=== PATIENT | female | born 1925 | race Caucasian/White ===

== ENCOUNTER 2016-09-08 23:30 | Emergency (ER) | payer MEDICARE, BC ==
[~2016-09-08 23:30] MED LIST: BENICAR PO; CORGARD PO; GLUCOTROL PO; ZOCOR PO
[2017-01-15] MEDS ORDERED: NADOLOL40 MG PO (11:56)
[2017-01-15] MEDS ORDERED: GLUCOTROL XL5 M1 PO (11:56)
[2017-01-15] MEDS ORDERED: ATIVAN PO (11:57)
[2017-01-15] MEDS ORDERED: LEXAPRO PO (11:57)
[2017-01-15] MEDS ORDERED: SIMVASTATIN40 MG PO (11:58)
== END 2016-09-09 | disposition left against medical advice (07) ==
LOC: SED 23:30
DX: Z53.21 Procedure and treatment not carried out due to patient leaving prior to being seen by health care provider (principal)

== ENCOUNTER → 2016-10-09 18:30 | Emergency (ER) | payer MEDICARE, BC ==
[~2016-10-09 18:30] MED LIST changes: +ATIVAN PO; +ATIVAN0.5 MG PO; +GLUCOTROL XL5 M1 PO; +HYDROXYUREA500 M1 PO; +LEXAPRO PO; +NADOLOL40 MG PO; +ONDANSETRON ODT4 MG PO; +SIMVASTATIN40 MG PO; +ZOFRAN ODT4 MG PO
== END | disposition left against medical advice (07) ==
LOC: CED 18:30
DX: Z53.21 Procedure and treatment not carried out due to patient leaving prior to being seen by health care provider (principal)
CPT/HCPCS: 82947; J0461

== ENCOUNTER → 2017-01-06 | Outpatient (CLI) | payer MEDICARE, BC ==
--- NOTE | ~2017-01-06 | CT55 ---
[facility] A Service of [facility] & [facility] RADIOLOGY TEXT RESULTS PATIENT: ARTIS WHITE [facility] [birth year] UNIT #: [id number] AGE: [address]: Erick Majano MD SEX: F ORDER DR: [id number] [facility] [address]. [place], [place] [address] [id number] O MR#: [id number] Acc #: [id number] NAME: ARTIS WHITE : 1925 SEX: F STUDY DATE/TIME: 01/06/2017 15:37 UNIT: [facility] ROOM: STUDY DESCRIPTION: CT Chest W Con Attending Physician: Erick Majano M.D. Referring Physician: Erick Majano M.D. Ordering Physician: Erick Majano M.D. Primary Care Physician: John Magallanes M.D. MEDICAL IMAGING REPORT This report is preliminary unless electronic signature is present EXAM CT chest with contrast, 01/06/2017, 1537 hours. CLINICAL HISTORY 89-year-old woman with a history of colon carcinoma, prior chemotherapy, complaining of the chest wall mass in the upper back on the right. Right-sided chest pain for 3 weeks. History of thrombocytopenia. COMPARISON CT chest, 09/08/2016. TECHNIQUE Dynamic helical CT images were obtained from the thoracic inlet through the adrenal glands with contrast. Isovue-370 70 mL IV. Total exam DLP 727 mGy-cm. This CT exam was performed with one or more of the following radiation dose reduction techniques: automatic exposure control, adjustment of mA and/or kV according to patient size, and iterative reconstruction. FINDINGS Images through the thoracic inlet demonstrate stable small left thyroid nodule with calcification, indeterminate but likely benign. Images through the chest demonstrate stable nodule well-circumscribed in the anterior mediastinal fat retrosternal area measuring 1.3 x 0.9 cm, previously 1.2 x 1.0 cm. There is no pathologic hilar adenopathy. Coronary calcifications are unchanged. Cardiac chambers and pericardium are normal. There is a very small hiatal hernia without change. Lung window images demonstrate clearing of the airspace densities from the right lower lobe. There is some linear density at the right base anteriorly and posteriorly, likely atelectasis or scar. There is no STS. [facility] A Service of [facility] RADIOLOGY TEXT RESULTS PATIENT: ARTIS WHITE LOCATION: [facility] : [birth year] UNIT #: [id number] AGE: [address]: Erick Majano MD SEX: F ORDER DR: change in a 3 mm subpleural nodule at the left lung base best seen on image 37, likely benign. There is no pleural effusion or pneumothorax. No rib fracture seen. The patient has 2 well-defined, new fluid collections in the musculature of the right back. In the medial superior right back medial to the scapula, there is a fluid collection fairly well defined measuring 6.7 x 2.4 x 5.1 cm. In the more inferolateral chest, there is a well-defined fluid collection measuring 8.7 x 3.2 x 10.4 cm. Both of these appear to be intramuscular and are new from 09/08/2016 and are favored to represent a subacute hematomas or chronic seromas. No definite associated rib fracture or rib lesion is seen. There is no enhancement associated with either area and post traumatic changes are favored. Limited views through the upper abdomen demonstrate stable mild splenomegaly. There is no liver or adrenal lesion. IMPRESSION 1. Interval clearing of the airspace changes and air bronchograms from the right lower lobe with some linear scarring at the right base, both anteriorly and posteriorly. There is no pleural effusion, pneumothorax, or rib lesion. 2. There are 2 new well-defined fluid collections in the musculature of the right chest posteriorly. In the more superior aspect of the chest, there is a collection measuring 6.7 x 2.4 x 5.1 cm. In the more inferolateral right chest wall, there is a collection measuring 8.7 x 3.2 x 10.4 cm. Both of these demonstrate no enhancement. Both are new from 09/08/2016 and are favored to represent subacute hematomas or seromas. Correlate with areas of palpable complaint. 3. There are no acute findings in the upper abdomen. STAT * RESULT Dictated by... Marietta Prescott M.D. THIS IS AN ELECTRONICALLY VERIFIED REPORT Marietta Prescott M.D. at 01/08/2017 2:33 PM PABLITO/uche TD: 01/08/2017 10:39 JOB #: [id number] MEDICAL IMAGING REPORT Page 1 of 1 COPY
[2017-01-06 17:40] LABS: POC - CREATININE 1.05 mg/dL (0.44-1.03)
== END | disposition home or self-care (01) ==
LOC: CCAT 14:58
PROVIDERS: Internal Medicine Hematology & Oncology
DX: R22.2 Localized swelling, mass and lump, trunk (principal); D47.3 Essential (hemorrhagic) thrombocythemia; J98.4 Other disorders of lung
CPT/HCPCS: 71260; 82565; Q9967

== ENCOUNTER → 2017-01-16 | Outpatient (CLI) | payer MEDICARE, BC ==
--- NOTE | ~2017-01-16 | XA51 ---
[facility] A Service of [facility] RADIOLOGY TEXT RESULTS PATIENT: ARTIS WHITE [facility] [birth year] UNIT #: [id number] AGE: [address]: Erick Majano MD SEX: F ORDER DR: [id number] [facility] [address] [place], [place] [address] [id number] O MR#: [id number] Acc #: [id number] NAME: ARTIS WHITE : 1925 SEX: F STUDY DATE/TIME: 01/16/2017 8:56 UNIT: [facility] ROOM: STUDY DESCRIPTION: XA BX Bone Marrow Attending Physician: Erick Majano M.D. Referring Physician: Erick Majano M.D. Ordering Physician: Erick Majano M.D. Primary Care Physician: John Magallanes M.D. MEDICAL IMAGING REPORT This report is preliminary unless electronic signature is present EXAM Bone marrow aspiration and biopsy HISTORY Thrombocytosis. TECHNIQUE The procedure was explained to the patient including risks, benefits and complications. Informed consent was obtained and a formal time-out procedure was utilized. Conscious sedation was employed with intravenous Versed and Fentanyl that was administered by nursing who was present and monitoring the patient during the examination. Total physician face time during conscious sedation 10-15 minutes. Sterile technique was utilized and the skin was anesthetized with 1% lidocaine. One overhead spot film was obtained with fluoroscopy time of 0.2 minutes and a dose of 10 mGy. Using sterile technique and following local anesthesia with 1% Xylocaine, a bone marrow trocar was placed into the right iliac bone under fluoroscopic guidance. Bone marrow aspiration was performed followed by core biopsy. The patient tolerated the procedure well. The aspirate was placed in appropriately colored and labeled test tubes. Final pathology results are pending. IMPRESSION Technically successful bone marrow aspiration and biopsy with conscious sedation. Dictated by... Preston Nettles M.D. THIS IS AN ELECTRONICALLY VERIFIED REPORT Preston Nettles M.D. at 01/16/2017 4:33 PM RLF/analia [facility] A Service of [facility] & [facility] RADIOLOGY TEXT RESULTS PATIENT: ARTIS WHTIE LOCATION: [facility] : [birth year] UNIT #: [id number] AGE: [address]: Erick Majano MD SEX: F ORDER DR: TD: 01/16/2017 13:29 JOB #: [id number] MEDICAL IMAGING REPORT Page 1 of 1 COPY
[2017-01-16 08:00] LABS: HEMATOCRIT 34.6 % (35.0-45.0); HEMOGLOBIN 10.5 gm/dL (12.0-16.0); MEAN CELL VOLUME 81.9 FL (83-96); MEAN CORPUSCULAR HGB CONC 30.5 g/dL (30-36); MEAN PLATELET VOLUME 8.4 FL (6.5-11.5); RED BLOOD COUNT 4.22 X10e (3.90-5.30); RED CELL DISTRIBUTION WIDTH 27.5 % (11.0-15.5); WHITE BLOOD COUNT 15.7 X10e3 (4.0-10.5)
[2017-01-16 08:12] LABS: INR 1.1; PARTIAL THROMBOPLASTIN TIME 24.4 SECONDS (23.5-31.3); PROTHROMBIN TIME (PATIENT) 12.1 SECONDS (10.0-11.7)
== END | disposition home or self-care (01) ==
LOC: CIVR 07:30
PROVIDERS: Internal Medicine Hematology & Oncology
PROC: 07DR3ZX Extraction of Iliac Bone Marrow, Percutaneous Approach, Diagnostic (ICD-10-PCS; principal; 2017-01-16)
PROC: 079T3ZX Drainage of Bone Marrow, Percutaneous Approach, Diagnostic (ICD-10-PCS; 2017-01-16)
DX: D47.3 Essential (hemorrhagic) thrombocythemia (principal); R22.2 Localized swelling, mass and lump, trunk; N28.89 Other specified disorders of kidney and ureter; E11.9 Type 2 diabetes mellitus without complications; I10 Essential (primary) hypertension; Z85.038 Personal history of other malignant neoplasm of large intestine; Z83.3 Family history of diabetes mellitus
CPT/HCPCS: 38221; G0364; 36415; 77002; 81270; 85027; 85610; 85730; 88184; 88185; 88237; 88261; 88271; 88275; 88280; 88285; 88305; 88311; 88313; 88323; 88341; 88342; J2250; J3010

== ENCOUNTER 2017-02-25 17:17 | Inpatient (IN) | payer MEDICARE, BC ==
[~2017-02-25] VITALS: Ht 160 cm; Wt 60.6 kg
--- NOTE | ~2017-02-25 | DS ---
Unit #: [id number] #: [id number] Patient: ARTIS WHITE [id number] [address] [place], [place] [address] [id number] I MR#: [id number] NAME: ARTIS WHITE ROOM: 328 Age: 89 Sex: F Admission Date: 02/25/2017 : 1925 Discharge Date: 02/27/2017 Attending Physician: Tessie Davis M.D. Primary Care Physician: John Magallanes M.D. DISCHARGE SUMMARY PRINCIPAL DIAGNOSES 1. Neutropenic fever, likely viral in origin. 2. Primary myelofibrosis with associated pancytopenia. 3. Pancytopenia. 4. Acute kidney injury, prerenal, now resolved. 5. Hypovolemic hyponatremia, resolved. 6. Diabetes mellitus type 2. 7. Depression with anxiety. 8. Hyperlipidemia. 9. Hypertension. CONSULTANTS Dr. Majano - Oncology. PROCEDURES Chest x-ray on February 25, 2017, without any acute findings. Cardiomegaly noted. CLINICAL HISTORY/HOSPITAL COURSE Ms. White is a very nice 89-year-old female who presents to the emergency department after the abrupt onset of nausea, vomiting, diarrhea and fever at home. Patient had recently been diagnosed with initially essential thrombocytosis and started on hydroxyurea. However, outpatient workup reveals significant pancytopenia and the combination of all these factors resulted in admission. In regards to patient's fever, she was started on empiric cefepime given she was neutropenic. However, chest x-ray, blood cultures, urine cultures, stool studies have all been negative and fever has spontaneously resolved. No plans for any further antibiotic therapy. The patient had undergone bone marrow biopsy on an outpatient basis and further studies on bone marrow biopsy reveals she has primary myelofibrosis and this is the most likely source of her pancytopenia. She has been transfused two units of packed red blood cells during hospitalization. Discharge white blood cell count is 1.9 and will be followed by Dr. Majano on an outpatient basis. Discharge platelet count 131,000. Patient is otherwise clinically stable and at her baseline. Diagnosis and prognosis have all been discussed with the patient and her family by Dr. Majano and they will follow up with Dr. Majano as an outpatient. DISCHARGE CONDITION Stable. Unit #: [id number] #: [id number] Patient: ARTIS WHITE DISCHARGE STATUS Discharge to home. DISCHARGE MEDICATIONS 1. Lexapro 10 mg daily. 2. Zofran 4 mg p.o. q.6 hours p.r.n. for nausea, vomiting. 3. Nadolol 40 mg daily. 4. Simvastatin 40 mg at bedtime. 5. Glucotrol XL 5 mg p.o. daily. DISCHARGE INSTRUCTIONS Patient instructed to follow a constant carb diet. She can increase her activity as tolerated. She is independent at baseline. FOLLOWUP Patient will follow up with Dr. Majano in two weeks. She can follow up with Dr. John Magallanes in two weeks as well. Dictated by... Tessie Davis M.D. SHEEBA/hailey TD: 02/28/2017 11:47 JOB #: [id number] DISCHARGE SUMMARY Page 1 of 1 X Tessie Davis MD X DISCHARGE SUMMARY
--- NOTE | ~2017-02-25 | HP ---
Unit #: [id number] #: [id number] Patient: ARTIS WHITE [id number] [address] [place], [place] [address] [id number] I MR#: [id number] NAME: ARTIS WHITE ROOM: 83394 Age: 89 Sex: F Admission Date: 02/25/2017 : 1925 Attending Physician: Phuong Meng M.D. Primary Care Physician: John Magallanes M.D. HISTORY AND PHYSICAL CHIEF COMPLAINT Nausea, vomiting, diarrhea with neutropenic fever. HISTORY This pleasant 89-year-old female with myeloproliferative disorder, on hydroxyurea, AODM, hypertension, is admitted for a neutropenic fever. The patient started hydroxyurea 01/20/2017, for what I believe is essential thrombocytosis, by Dr. Majano. She was well until five days ago when she developed intractable nausea, vomiting and some diarrhea which had improved, along with decreased p.o. intake, postural lightheadedness, fevers and chills. Her temperature was as high as 103 last evening. Family gave her Tylenol, and she was quite diaphoretic with chills this morning. She was told to stop her hydroxyurea. She presented to this emergency department tonight with a temperature of 103.2. She denies abdominal pain with the above, dysuria or sore throat. She has a minor cough per the family but chest x-ray is negative. Her current white blood count is 1.6 with 75 neutrophils, 10 bands. A call was made to Dr. Carcamo who requests cefepime be administered pending further workup. Patient denies ill contacts, or eating anything out of the ordinary. Labs also are consistent with dehydration. In the ER she was bolused with 2 L of saline, given Tylenol, Zofran and cefepime. PAST MEDICAL HISTORY 1. Myeloproliferative neoplasm on recent bone marrow biopsy, favor myelofibrosis. I am told patient has essential thrombocytosis and was started on hydroxy urea 01/20/2017. 2. AODM. 3. Anxiety. 4. Hyperlipidemia. 5. Hypertension. 6. Status post hemicolectomy 2001 for colon cancer. ALLERGIES None. HOME MEDICATIONS 1. Nadolol 40 mg daily. 2. Glucotrol XL 5 mg daily. 3. Zocor 40 mg q.h.s. 4. Lexapro 10 mg daily. 5. Hydroxyurea 500 mg daily. 6. Ativan 0.5 mg p.r.n. 7. Zofran 4 mg p.r.n. Started yesterday. Unit #: [id number] #: [id number] Patient: ARTIS WHITE FAMILY HISTORY Noncontributory given the patient's age. SOCIAL HISTORY The patient lives alone. She was accompanied by family. She is a lifelong nonsmoker, does not drink alcohol. REVIEW OF SYSTEMS Review of systems is notable for nausea, vomiting, diarrhea, thrombocytosis, AODM, hypertension, anxiety, hyperlipidemia, colon cancer, dizziness. All other systems were reviewed and are otherwise negative. PHYSICAL EXAMINATION GENERAL: Very pleasant, 89-year-old, young-appearing female who is somewhat diaphoretic but is in no acute distress. VITAL SIGNS: Initial temperature 103.2. Pulse 81. Respirations 16. Blood pressure 133/49. O2 saturation is 98% on room air. HEENT: Eyes PERRLAA, extraocular muscles are intact, status post bilateral cataract extraction. Pharynx is benign. NECK: Supple, without adenopathy or thyromegaly. CHEST: Is clear. CARDIAC: Normal S1 and S2, without murmur. ABDOMEN: Bowel sounds are present. No hepatosplenomegaly, tenderness or masses. EXTREMITIES: Without cyanosis, clubbing or edema. Pedal pulses are present. No ulcers on the feet. SKIN: Without rashes. NEUROLOGIC EXAM: Patient is awake, alert, oriented. Cranial nerves are intact. Equal strength throughout. DIAGNOSTIC STUDIES LABORATORY: Hematocrit is 24.6, down from 34.6 last month, white blood count 1.6 with 75 neutrophils, 10 bands, 9 lymphocytes, 6 monocytes, platelet count is 150 down from 573 last month, normal MCV. SMA-12: Glucose 160, BUN 36, creatinine 1.1, up from a BUN of 20 in 2008, sodium 128, chloride 98, calcium 10.5, normal lipase, lactic acid, normal coags. Urinalysis 2+ protein, otherwise negative. IMAGING: Chest x-ray no acute disease. 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 No previous EKG for comparison. ASSESSMENT 1. Neutropenic fever. 2. Nausea, vomiting, diarrhea with fever which could be viral, without bacterial gastroenteritis. 3. Hydroxyurea and neutropenia. 4. Normocytic anemia, possibly related to hydroxyurea. 5. Myeloproliferative disorder with thrombocytosis, on hydroxyurea. 6. Adult-onset diabetes mellitus. 7. Dehydration. 8. Hyperlipidemia. 9. Essential hypertension. 10. Status post hemicolectomy for colon cancer 2001. Unit #: [id number] #: [id number] Patient: ARTIS WHITE PLANS 1. IV fluids and supportive treatment. 2. Stool and blood cultures. 3. Start Florastor. 4. Case was discussed with Oncology and cefepime has been ordered pending cultures. Oncology to consult in the morning. 5. Hold hydroxyurea. 6. Obtain Hemoccult. 7. Sliding-scale insulin and hold Glucotrol. 8. SCDs for DVT prophylaxis. Dictated by Phuong Meng M.D. AML/cf TD: 02/25/2017 21:48 JOB #: [id number] HISTORY AND PHYSICAL Page 1 of 1 X Phuong Meng MD HISTORY AND PHYSICAL
--- NOTE | ~2017-02-25 | CR72 ---
[facility] A Service of [facility] & [facility] RADIOLOGY TEXT RESULTS PATIENT: ARTIS WHITE LOCATION: [facility] 328-01 : [birth year] UNIT #: [id number] AGE: [address]: Tessie Davis MD SEX: F ORDER DR: [id number] [facility] [address] [place], [place] [address] [id number] I MR#: [id number] #: [id number] NAME: ARTIS WHITE : 1925 SEX: F STUDY DATE/TIME: 02/25/2017 17:55 UNIT: [address] ROOM: [facility] STUDY DESCRIPTION: CR Chest Single View Portable Attending Physician: Tessie Davis M.D. Ordering Physician: Husam Cleveland M.D. Primary Care Physician: John Magallanes M.D. MEDICAL IMAGING REPORT This report is preliminary unless electronic signature is present EXAM Portable chest. HISTORY Fever, cough and vomiting for the past day. COMPARISON 10/09/2016. TECHNIQUE Single AP view chest was obtained. FINDINGS Since previous examination, the heart, lungs, mediastinum show no changes. The aorta is tortuous. The heart is mildly enlarged. Both lungs are clear with normal vascular markings. No pleural fluid. IMPRESSION No active disease. No change from the previous exam. Dictated by... Preston Nettles M.D. THIS IS AN ELECTRONICALLY VERIFIED REPORT Preston Nettles M.D. at 02/27/2017 7:07 AM RLF/gz TD: 02/26/2017 08:08 JOB #: [id number] MEDICAL IMAGING REPORT Page 1 of 1 COPY
--- NOTE | ~2017-02-25 | EKG ---
PATIENT: ARTIS WHITE UNIT #: [id number] Ventricular Rate: 83 BPM Atrial Rate: 83 BPM P-R Interval: 142 ms QRS Duration: 126 ms Q-T Interval: 380 ms QTC Calculation(Bezet): 446 ms P Horton: 35 degrees Calculated R Horton: -60 degrees Calculated T Horton: 21 degrees Diagnosis Line: Normal sinus rhythm Diagnosis Line: Right bundle branch block Diagnosis Line: Left anterior fascicular block Diagnosis Line: Bifascicular block Diagnosis Line: Abnormal ECG Diagnosis Line: No previous ECGs available Diagnosis Line: Confirmed by ILA RUIZ MD ([id number]) on 02/26/2017 Diagnosis Line: 7:17:29 AM INTERPRETING MD: SARA SANTOS
--- NOTE | ~2017-02-25 | CO ---
Unit #: [id number] #: [id number] Patient: CATHY WHITE [id number] [address] [place], [place] [address] [id number] I MR#: [id number] NAME: CATHY WHITE ROOM: 328 Age: 89 Sex: F Admission Date: 02/25/2017 : 1925 Attending Physician: Tessie Davis M.D. Primary Care Physician: John Magallanes M.D. Consultation Date: 02/26/2017 CONSULTATION REPORT REASON FOR CONSULTATION Neutropenic fever, please evaluate. HISTORY OF PRESENT ILLNESS Ms. Cathy White is 89-year-old, who is known to me from recent consultation as an outpatient, where she presented with elevated platelet count and leukocytosis and a bone marrow aspiration biopsy was done. The initial result was suggestive of essential thrombocytosis and she was started on hydroxyurea 500 mg once daily with better control of platelet count. Last week, she had recurrent nausea and vomiting. Subsequently having a fever recorded as being as high as 103 at home. She saw Neema Lewis, a nurse practitioner at [facility] yesterday reporting a temperature, was found to have low sodium, white count of 1.6 with absolute neutropenia and after discussion, was referred to the emergency room for further admission. She has now had blood cultures and urine cultures obtained and was started on Maxipime for presumed neutropenic fever. She feels slightly better. In recent months, Ms. White slowly lost weight. She has had episodes of anxiety and insomnia as well as neck pain. She has also had headache on and off. She has also been considerably fatigued, all of which could probably be explained by her myeloproliferative disorder. PAST MEDICAL HISTORY History of adult-onset diabetes mellitus, hypertension, anxiety, hyperlipidemia. ALLERGIES No known medication allergies. HOME MEDICATIONS Nadolol 40 mg once daily, Glucotrol XL 5 mg once daily, Zocor 40 mg once a day, Lexapro 10 mg once daily, hydroxyurea 500 mg once daily, Ativan 0.5 mg p.r.n. h.s. and Zofran p.r.n. FAMILY HISTORY Negative for blood disorders. SOCIAL HISTORY Never smoker. Does not drink any alcohol. She lives by herself. She has multiple children who assist in the care. REVIEW OF SYSTEMS Fourteen point review of systems was taken. CONSTITUTIONAL: As discussed. Unit #: [id number] #: [id number] Patient: CATHY WHITE EYES: Negative. EARS, NOSE, MOUTH, AND THROAT: Negative. CARDIOVASCULAR: Negative. RESPIRATORY: No cough, shortness of breathing or expectoration. GASTROINTESTINAL: Nausea and vomiting with loose watery stools. No tenesmus or cramps. GENITOURINARY: Negative. ALLERGIC/LYMPHATIC: Negative. SKIN: Negative. PSYCHIATRIC: Anxiety. NEUROLOGIC: Occasional confusion, headaches and neck pain. PHYSICAL EXAMINATION GENERAL: She is a pleasant elderly woman, lying in bed, awake, alert and oriented x3. VITAL SIGNS: Temperature is 98, T-max is 100.3, pulse rate 83, respirations 18, blood pressure 175/71, O2 saturation 96% on room air. HEENT: Shows pallor. Pupils are equal and reactive well to light. Mucous membranes are slightly dry. NECK: Without adenopathy, JVD, or thyromegaly. CARDIOVASCULAR: First and second heart sounds are heard and regular without murmurs, gallops or rubs. LUNGS: Chest expansion is symmetric. Bilateral equal air entry with normal breath sounds. ABDOMEN: Soft and nontender. Liver and spleen are not palpable. EXTREMITIES: Warm. Good pulses. No edema, cyanosis or clubbing. NEUROLOGIC: She is awake, alert, and oriented x3 without any focal findings. DIAGNOSTIC STUDIES LABORATORY RESULTS: Lactic acid 1.1. Pro time is normal. Urine culture is pending. Basic metabolic panel showed a BUN of 36, creatinine 1.1 and eGFR calculated as 44.5. LFTs are normal. CBC showed a white count of 1.6, hemoglobin is 8.1, platelets 150,000 with absolute neutrophil count of 1300. Repeat CBC this morning shows hemoglobin of 6.9, white count of 1700, and the neutrophil count is 1300. IMAGING STUDIES: Chest x-ray, single view, was personally reviewed and shows no active disease. DISCUSSION Ms. Cathy White is an 89-year-old with a history of hypertension, type 2 diabetes mellitus, anxiety and depression with recently diagnosed elevated platelet count and leukocytosis. Bone marrow aspiration biopsy was initially suggestive of essential thrombocytosis with outside Hemopathology consultation consistent with primary myelofibrosis, which would certainly explain her fatigue, weight loss and bony pains. She now has drug-induced thrombocytopenia secondary to hydroxyurea, probably exacerbated by nausea, vomiting and diarrhea experienced last week. After cultures, she is on broad-spectrum antibiotics. I had an extensive discussion with Ms. White and her daughter, who was at bedside about primary myelofibrosis, its significantly worse prognosis compared to essential thrombocytosis and is likely to produce progressive pancytopenia, splenomegaly and explain her constitutional symptoms. We discussed about living arrangements including assisted living and I reviewed her medications and asked to discontinue her simvastatin. Her anxiety episodes are probably related to her myelofibrosis rather than primary anxiety and we discussed about Lexapro, which I asked her to Unit #: [id number] #: [id number] Patient: CATHY WHITE ANN continue, but discontinue her Ativan. She can also discontinue simvastatin given no prior history of coronary artery disease and a life-limiting condition in primary myelofibrosis. Dictated by... Brenda Chamorro/katalina TD: 02/27/2017 02:39 JOB #: [id number] CC: John Magallanes M.D. CONSULTATION REPORT Page 1 of 1 X Erick Majano MD X CONSULTATION REPORT
[~2017-02-25 17:17] MED LIST changes: -ATIVAN0.5 MG PO; -HYDROXYUREA500 M1 PO; -ONDANSETRON ODT4 MG PO; -ZOFRAN ODT4 MG PO
[2017-02-25 18:12] LABS: BASOPHIL% 0.3 % (0-2.5); EOSINOPHIL% 0.2 % (0.0-7.0); HEMATOCRIT 24.6 % (35.0-45.0); HEMOGLOBIN 8.1 gm/dL (12.0-16.0); LYMPHOCYTE# 0.2 X10e3 (1.0-3.5); LYMPHOCYTE% 9.6 % (17.0-45.0); MEAN CELL VOLUME 83.7 FL (83-96); MEAN CORPUSCULAR HEMOGLOBIN 27.6 PG (28-34); MEAN PLATELET VOLUME 9.3 FL (6.5-11.5); MONOCYTE# 0.1 X10e3 (0-1.0); MONOCYTE% 6.4 % (3.0-12.0); NEUTROPHIL# 1.3 X10e3 (1.5-7.1); NEUTROPHIL% 83.5 % (40-75); PLATELET COUNT 150 X10e3 (140-420); RED BLOOD COUNT 2.94 X10e (3.90-5.30); RED CELL DISTRIBUTION WIDTH 30.9 % (11.0-15.5); WHITE BLOOD COUNT 1.6 X10e3 (4.0-10.5)
[2017-02-25 18:12] LABS: URINE APPEARANCE CLEAR; URINE BILIRUBIN NEG (NEG); URINE BLOOD NEG (NEG); URINE COLOR DK YELLOW; URINE GLUCOSE NEG (NEG); URINE KETONE NEG (NEG); URINE LEUKOCYTE ESTERASE NEG (NEG); URINE NITRATE NEG (NEG); URINE PROTEIN 2+ (NEG); URINE SPECIFIC GRAVITY 1.022 (1.003-1.035)
[2017-02-25 18:13] LABS: DIFF IND YES
[2017-02-25 18:15] LABS: CULTURE INDICATED? NO; U HYALINE CASTS AUWI 0-2 /[LPF]; URBCS1 AUWI 0-2 /[HPF] (0-2); URINE BACTERIA AUWI NEG (NEGATIVE); URINE SQUAMOUS EPITHELIAL CELL NONE SEEN /[HPF]; UWBCS1 AUWI 0-2 (0-5)
[2017-02-25 18:19] LABS: INR 1.2; PARTIAL THROMBOPLASTIN TIME 28.7 SECONDS (23.5-31.3); PROTHROMBIN TIME (PATIENT) 12.7 SECONDS (10.0-11.7)
[2017-02-25 18:41] LABS: ALBUMIN SERUM 3.8 g/dL (3.5-5.0); BILIRUBIN, DIRECT 0.3 mg/dL (0.0-0.2); BILIRUBIN,INDIRECT 0.8 mg/dL (0.0-0.9); BILIRUBIN,TOTAL 1.1 mg/dL (0.2-2.0); BUN/CREATININE RATIO 32.72; CALCIUM SERUM 10.5 mg/dL (8.4-10.2); CREATININE SERUM 1.1 mg/dL (0.6-1.4); GLOM FILT RATE Estimated 44.5 mL/min (>60); PHOSPHOROUS 2.6 mg/dL (2.5-4.6); POTASSIUM 4.2 mmol/L (3.5-5.1); PROTEIN TOTAL SERUM 7.2 g/dL (6.0-8.3)
[2017-02-25 18:47] LABS: PLATELET ESTIMATE NORMAL (NORMAL); TARGET CELLS SL
[2017-02-25] MEDS ORDERED: NADOLOL40 MG PO (19:18)
[2017-02-25] MEDS ORDERED: GLUCOTROL XL5 M1 PO (19:18)
[2017-02-25] MEDS ORDERED: SIMVASTATIN40 MG PO (19:18)
[2017-02-25] MEDS ORDERED: LEXAPRO PO (19:19)
[2017-02-25] MEDS ORDERED: ATIVAN0.5 MG PO (19:22)
[2017-02-25] MEDS ORDERED: HYDROXYUREA500 M1 PO (19:22)
[2017-02-25] MEDS ORDERED: ZOFRAN ODT4 MG PO (19:22)
[2017-02-26 04:02] LABS: BASOPHIL% 0.3 % (0-2.5); EOSINOPHIL% 0.4 % (0.0-7.0); HEMATOCRIT 21.4 % (35.0-45.0); LYMPHOCYTE# 0.2 X10e3 (1.0-3.5); LYMPHOCYTE% 13.1 % (17.0-45.0); MEAN CORPUSCULAR HGB CONC 32.2 g/dL (30-36); MEAN PLATELET VOLUME 9.2 FL (6.5-11.5); MONOCYTE# 0.1 X10e3 (0-1.0); MONOCYTE% 7.2 % (3.0-12.0); NEUTROPHIL# 1.3 X10e3 (1.5-7.1); PLATELET COUNT 125 X10e3 (140-420); RED BLOOD COUNT 2.55 X10e (3.90-5.30); RED CELL DISTRIBUTION WIDTH 29.8 % (11.0-15.5); WHITE BLOOD COUNT 1.7 X10e3 (4.0-10.5)
[2017-02-26 04:03] LABS: HEMOGLOBIN 6.9 gm/dL (12.0-16.0)
[2017-02-26 04:04] LABS: DIFF IND YES
[2017-02-26 04:34] LABS: DIFFERENTIAL COMMENT OCC.GIA.PLT.; PLATELET ESTIMATE DECREASED (NORMAL)
[2017-02-26 04:35] LABS: ANISOCYTOSIS MOD; OVALOCYTES PRESENT; POIKILOCYTOSIS SL
[2017-02-26 07:09] LABS: BUN/CREATININE RATIO 34.44; CALCIUM SERUM 9.3 mg/dL (8.4-10.2); CREATININE SERUM 0.9 mg/dL (0.6-1.4); GLOM FILT RATE Estimated 56.7 mL/min (>60); POTASSIUM 4.3 mmol/L (3.5-5.1)
[2017-02-27 08:58] LABS: HEMATOCRIT 23.1 % (35.0-45.0); HEMOGLOBIN 7.5 gm/dL (12.0-16.0); MEAN CELL VOLUME 84.8 FL (83-96); MEAN CORPUSCULAR HEMOGLOBIN 27.5 PG (28-34); MEAN CORPUSCULAR HGB CONC 32.4 g/dL (30-36); MEAN PLATELET VOLUME 9.2 FL (6.5-11.5); RED BLOOD COUNT 2.73 X10e (3.90-5.30); RED CELL DISTRIBUTION WIDTH 26.4 % (11.0-15.5); WHITE BLOOD COUNT 1.9 X10e3 (4.0-10.5)
[2017-02-27 09:18] LABS: BUN/CREATININE RATIO 31.42; CALCIUM SERUM 9.7 mg/dL (8.4-10.2); CREATININE SERUM 0.7 mg/dL (0.6-1.4); GLOM FILT RATE Estimated 76.8 mL/min (>60); MAGNESIUM 1.8 mg/dL (1.6-3.0); POTASSIUM 4.2 mmol/L (3.5-5.1)
[2017-02-27] MEDS ORDERED: ONDANSETRON ODT4 MG PO (17:42)
== END 2017-02-27 21:15 | disposition home or self-care (01) | DRG 809 ==
LOC: CED 17:17 → C3A PCU 21:00 → CEDOF 21:00 → C3A PCU 02-26 01:15
PROVIDERS: Emergency Medicine; Internal Medicine; Internal Medicine Hematology & Oncology
PROC: 30233N1 Transfusion of Nonautologous Red Blood Cells into Peripheral Vein, Percutaneous Approach (ICD-10-PCS; principal; 2017-02-26)
DX: D70.2 Other drug-induced agranulocytosis (principal); D47.1 Chronic myeloproliferative disease; N17.9 Acute kidney failure, unspecified; E86.0 Dehydration; E11.9 Type 2 diabetes mellitus without complications; E87.1 Hypo-osmolality and hyponatremia; I10 Essential (primary) hypertension; D47.3 Essential (hemorrhagic) thrombocythemia; T45.1X5A Adverse effect of antineoplastic and immunosuppressive drugs, initial encounter; Y92.9 Unspecified place or not applicable; Z79.84 Long term (current) use of oral hypoglycemic drugs; F32.9 Major depressive disorder, single episode, unspecified; F41.9 Anxiety disorder, unspecified; E78.5 Hyperlipidemia, unspecified; D64.9 Anemia, unspecified; R11.2 Nausea with vomiting, unspecified; R19.7 Diarrhea, unspecified; Z90.49 Acquired absence of other specified parts of digestive tract; Z85.038 Personal history of other malignant neoplasm of large intestine
CPT/HCPCS: 36415; 51701; 71010; 80048; 80076; 81003; 82947; 83605; 83690; 83735; 84100; 84443; 85025; 85027; 85610; 85730; 86850; 86900; 86901; 86923; 87040; 87045; 87177; 87209; 87427; 87493; 87899; 93005; 96361; 96374; 97161; 97165; 99285; G8978-GP; G8979-GP; G8980-GP; G8987-GO; G8988-GO; G8989-GO; J0692; J1815; J2405; P9016